=== PATIENT | female | born 1985 ===

== ENCOUNTER 2022-08-04 14:00 | Outpatient (CLI) | payer OTHER, SELFPAY ==
[2022-08-04 14:26] LABS: Basophils Absolute Auto 0.04 K/mm3 (0.00-0.10); Basophils Percent Auto 0.5 % (0.0-1.0); Eosinophils Absolute Auto 0.06 K/mm3 (0.02-0.50); Eosinophils Percent Auto 0.7 % (1.0-6.0); Hematocrit 37.8 % (35.0-49.0); Hemoglobin 11.9 g/dL (12.0-15.0); Immature Granulocyte Absolute 0.02 K/mm3 (0.00-0.00); Immature Granulocyte Percent A 0.2 % (0.0-0.0); Lymphocytes Percent Auto 34.1 % (18.0-42.0); Mean Corpuscular HGB Conc 31.5 g/dL (32.0-36.0); Mean Corpuscular Volume 92.2 fL (78.0-102.0); Mean Platelet Volume 10.7 fl (9.2-11.8); Monocytes Absolute Auto 0.52 K/mm3 (0.10-0.90); Monocytes Percent Auto 5.9 % (2.0-11.0); Neutrophils Absolute Auto 5.2 K/mm3 (1.7-7.2); Neutrophils Percent Auto 58.6 % (50.0-70.0); Platelet Count Result 194 K/mm3 (150-420); White Blood Count 8.8 K/mm3 (4.8-10.8)
[2022-08-04 15:04] LABS: Alanine Aminotransferase 21 U/L (14-59); Albumin Level 3.6 g/dL (3.4-5.0); Alkaline Phosphatase 52 U/L (46-116); Anion Gap 7 mmol/L (8-16); Aspartate Amino Transferase 13 U/L (15-37); Bilirubin,Total 0.2 mg/dL (0.00-1.00); Blood Urea Nitrogen 11 mg/dL (7-18); Calcium 8.5 mg/dL (8.5-10.1); Carbon Dioxide 28 mmol/L (21-32); Chloride 109 mmol/L (98-108); Estimated Glomerular Filt Rate > 60; Glucose 96 mg/dL (70-99); Osmolality Calculated 297 mOsm/kg (285-295); Sodium 144 mmol/L (136-145); Thyroid Stimulating Hormone 0.68 uIU/mL (0.36-3.74); Total Protein 7.2 g/dL (6.4-8.2)
[2022-08-04 16:54] LABS: Ferritin 19 ng/mL (8-252); Iron 52 ug/dL (50-170); Percent Iron Saturation 15 % (12-57)
[2022-08-07 08:37] LABS: Immature Reticulocyte Fraction 11.1 % (2.0-16.52); Reticulocyte Hemoglobin Conten 33.6 pg (28.0-35.0); Reticulocyte Percent 1.07 % (0.50-1.50); Reticulocytes Absolute 0.04 M/mm3 (0.02-0.1)
== END 2022-08-04 14:01 | disposition home or self-care (01) ==
PROVIDERS: PCP Nurse Practitioner Family; Visit Provider Nurse Practitioner Family
DX: N92.6 Irregular menstruation, unspecified (principal); Z86.39 Personal history of other endocrine, nutritional and metabolic disease
CPT/HCPCS: 36415; 80053; 82728; 83540; 83550; 84443; 85025; 85046